=== PATIENT | female | born 1970 | race Caucasian/White ===

== ENCOUNTER 2019-04-25 22:09 | Emergency (ER) | payer OTHER, MEDICAID ==
[~2019-04-25] VITALS: Ht 170.2 cm; Wt 88.0 kg
[~2019-04-25 22:09] MED LIST: IBUPROFEN 800800 MG PO; NOHOMEMEDICATIONS; PERCOCET 10-321 EACH PO; PERCOCET 5-3251 EACH PO; PHENERGAN 25 MG25 M1 PO; SILVADENE20 GM TP; ULTRACET TABLE1 EACH PO; XANAX 0.25 MG0.25 MG PO
[2019-04-25 22:13] VITALS: BP 150/90
== END 2019-04-25 22:36 | disposition home or self-care (01) ==
LOC: M.ERS 22:09
DX: S51.811A Laceration without foreign body of right forearm, initial encounter (principal); F10.129 Alcohol abuse with intoxication, unspecified; Y90.9 Presence of alcohol in blood, level not specified; F41.0 Panic disorder [episodic paroxysmal anxiety]; Z88.6 Allergy status to analgesic agent; Z88.0 Allergy status to penicillin; Z88.5 Allergy status to narcotic agent; Z98.51 Tubal ligation status; X58.XXXA Exposure to other specified factors, initial encounter; Y93.89 Activity, other specified; Y92.89 Other specified places as the place of occurrence of the external cause; Y99.8 Other external cause status

== ENCOUNTER 2020-07-06 20:00 | Emergency (ER) | payer MEDICAID ==
[~2020-07-06] VITALS: Ht 170.2 cm; Wt 81.7 kg
[2020-07-06] MEDS ORDERED: HYDROCODON-ACE1 EAC7 PO (20:16)
[2020-07-06] MEDS ORDERED: PERCOCET PO (21:48)
[2020-07-06 22:07] VITALS: BP 132/74
== END 2020-07-06 22:07 | disposition home or self-care (01) ==
LOC: M.ERS 20:00
DX: M54.6 Pain in thoracic spine (principal); F17.210 Nicotine dependence, cigarettes, uncomplicated; Z88.0 Allergy status to penicillin; Z88.5 Allergy status to narcotic agent; Z88.6 Allergy status to analgesic agent; Z98.51 Tubal ligation status